=== PATIENT | male | born 1930 | race Caucasian/White ===

== ENCOUNTER 2019-09-24 12:01 | Outpatient (CLI) | payer MEDICARE ==
--- NOTE | 2019-09-24 15:20 | PET ---
HEAD CT: 09/24/19 HISTORY: 88-year-old male with multiple myeloma, not having achieved remission. TECHNIQUE: PET scan with CT attenuation correction was performed from the vertex through the feet following the intravenous administration of 13 millicuries of 15-fluoroxydeglucose in the right wrist. COMPARISON: None. FINDINGS: No alexander hypermetabolism is seen in the neck, chest, axillae, abdomen and pelvis, inguinal regions or groins. No hypermetabolic pulmonary nodules, liver, adrenal or skeletal lesions are seen. There is physiologic activity in the brain, heart, GI and tracts. The CT scan used for attenuation correction demonstrates a moderate right sided and a small left side d pleural effusion. There is patchy consolidation in the right middle lobe with mild FDG localization and SUV of 2.7. There are calcifications in the pericardium. No ascites are seen. There are calcifie d gallstones and cysts in the kidneys. A nonhypometabolic 5.5 cm pelvic mass is seen with lamellar ca lcification. This has a benign appearance. Etiology is not certain. IMPRESSION: 1. No evidence of FDG avid myelomatous lesions. 2. Bilateral pleural effusions, right larger than left. 3. Patchy consolidation in the right middle lobe with mildly increased FDG uptake suspicious for infection. 4. Cholelithiasis. POS: [facility]
== END 2019-09-24 12:02 | disposition home or self-care (01) ==
LOC: PET 12:01
PROVIDERS: ATTEND Internal Medicine Hematology & Oncology
DX: C90.00 Multiple myeloma not having achieved remission (principal); K80.20 Calculus of gallbladder without cholecystitis without obstruction; J18.1 Lobar pneumonia, unspecified organism; J90 Pleural effusion, not elsewhere classified
CPT/HCPCS: 78816; A9552

== ENCOUNTER 2019-09-25 08:33 | Day surgery (SDC) | payer MEDICARE ==
[2019-09-24 11:57] VITALS: BMI 25.1
[2019-09-25 09:06] LABS: #Eosinphils 0.1 thou/uL (0.0-0.7); #Lymphocytes 2.5 thou/uL (1.20-3.40); #Monocytes 0.7 thou/uL (0.11-0.59); #Neutrophils 2.3 thou/uL (1.40-6.50); %Basophils 0.4 % (0.0-1.0); %Lymphocytes 44.9 % (21.0-51.0); %Monocytes 12.6 % (0.0-10.0); %Neutrophils 41.1 % (42.0-75.0); Hemoglobin 9.3 g/dL (14.0-18.0); Mean Corpuscular HGB CONC 31.4 g/dL (32.0-36.0); Mean Corpuscular Hemoglobin 29.5 pg (27.0-31.0); Mean Platelet Volume 6.7 fL (7.4-10.4); Platelet Count 266 thou/uL (130-400); RBC Distribution Width 16.8 % (11.5-14.5); Red Blood Cell (RBC) Count 3.15 mill/uL (4.70-6.10); White Blood Cell (WBC) Count 5.5 thou/uL (4.8-10.8)
[2019-09-25 09:11] LABS: INR-International Normal Ratio 1.3; PTT 27.7 sec (22.9-36.1)
[2019-09-25 11:09] VITALS: BP 125/69; TEMP 97.2
--- NOTE | 2019-09-25 11:47 | CT ---
Bone marrow biopsy CT-guided HISTORY: Multiple myeloma. FINDINGS: After explaining the procedure and answering all questions, limited CT imaging of the pelvi s was obtained with patient right lateral decubitus. Patient was unable to lie prone for the procedure. Sterile technique, buffered local anesthesia, CT guidance, and a posterior approach were used to care fully engage the posterior cortex of the right iliac body with an 11-gauge bone biopsy needle. Blood aspirate was obtained and submitted to pathology personnel. The 11-gauge core bone marrow speci men was then obtained and submitted to pathology personnel. Needle was removed. No evidence of complication. Patient tolerated the procedure well and was returned in good condition for further monitoring. IMPRESSION : Technically successful CT-guided biopsy bone marrow. Pathology is pending.
== END 2019-09-25 12:00 | disposition home or self-care (01) ==
LOC: CT 08:33
PROVIDERS: ATTEND Internal Medicine Hematology & Oncology
PROC: 07DR3ZX Extraction of Iliac Bone Marrow, Percutaneous Approach, Diagnostic (ICD-10-PCS; principal; 2019-09-25)
DX: C90.00 Multiple myeloma not having achieved remission (principal); D47.2 Monoclonal gammopathy; D64.89 Other specified anemias; Z87.891 Personal history of nicotine dependence; Z88.0 Allergy status to penicillin
CPT/HCPCS: 20225; 36415; 77002; 85025; 85097; 85610; 85730; 88184; 88237; 88264; 88280; 88305; 88311; 88313; 88342; 88365